=== PATIENT | male | born 1955 | race Caucasian/White ===

== ENCOUNTER 2017-06-17 12:14 | Day surgery (SDC) | payer OTHER ==
[2017-06-17] MEDS ORDERED: PROPOFOL 60 ML (17:16)
== END 2017-06-17 18:22 | disposition home or self-care (01) ==
LOC: GIL 12:14
DX: R19.4 Change in bowel habit (principal); K57.90 Diverticulosis of intestine, part unspecified, without perforation or abscess without bleeding; K63.3 Ulcer of intestine; I10 Essential (primary) hypertension
CPT/HCPCS: 45380; 88305